=== PATIENT | male | born 1995 | race Caucasian/White ===

== ENCOUNTER 2023-12-10 14:28 | Emergency (ER) | payer BC ==
[~2023-12-10] VITALS: Ht 180.3 cm; Wt 86.2 kg
[2023-12-10 14:42] VITALS: O2SAT 99
[2023-12-10] MEDS ORDERED: IBUP-1957 PO ×2 (14:53→17:40)
[2023-12-10] MEDS ORDERED: QUET50TA PO (14:53)
[2023-12-10 16:07] LABS: *BILIRUBIN,URIN NEGATIVE (NEGATIVE); *BLOOD, URINE TRACE (NEGATIVE); *CLARITY,URINE CLEAR (CLEAR); *COLOR,URINE YELLOW (YELLOW); *KETONES,URINE NEGATIVE (NEGATIVE); *PROTEIN,URINE NEGATIVE (NEGATIVE); *UROBILINOGEN,URINE 0.2 E.U./dl (NORMAL); LEUKOCYTE ESTERASE ,URINE NEGATIVE (NEGATIVE); NITRITE, URINE NEGATIVE (NEGATIVE); PH,URINE 7.5 (5.0-8.0); UGLUCOSE NEGATIVE (NEGATIVE)
[2023-12-10 16:51] LABS: SQUAMOUS EPITHELIAL CELL,UR FEW /HPF (NONE SEEN); WBC,URINE 0-3 /HPF (0-3)
== END 2023-12-10 17:58 | disposition home or self-care (01) ==
LOC: ER 14:28
DX: S39.011A Strain of muscle, fascia and tendon of abdomen, initial encounter (principal); Z79.899 Other long term (current) drug therapy; Z60.2 Problems related to living alone; X58.XXXA Exposure to other specified factors, initial encounter; Y93.89 Activity, other specified; Y92.89 Other specified places as the place of occurrence of the external cause; Y99.8 Other external cause status
CPT/HCPCS: A4606; A4663

== ENCOUNTER 2023-12-12 11:22 | Inpatient (IN) | payer BC ==
[~2023-12-12] VITALS: Ht 180.3 cm; Wt 88.0 kg
[~2023-12-12 11:22] MED LIST: IBUP-1957 PO; QUET50TA PO
[2023-12-12 11:37] VITALS: O2SAT 99
[2023-12-12 13:06] LABS: ALANINE AMINOTRANSFERASE 29 U/L (16-63); ALKALINE PHOSPHATASE 118 U/L (50-136); ASPARTATE AMINOTRANSFERASE 15 U/L (15-37); BILIRUBIN,TOTAL 0.3 mg/dL (0.2-1.0); CALCIUM 9.1 mg/dL (8.5-10.1); CARBON DIOXIDE 27 mmol/L (21-32); CHLORIDE 92 mmol/L (98-107); CREATININE 0.9 mg/dL (0.6-1.3); GLUCOSE 93 mg/dL (74-106); POTASSIUM 4.6 mmol/L (3.5-5.1); SODIUM SERUM 125 mmol/L (136-145); TOTAL PROTEIN, SERUM 7.4 g/dL (6.4-8.2); UREA NITROGEN, BLOOD 9 mg/dL (7-18)
[2023-12-12 13:18] LABS: BILIRUBIN,DIRECT < 0.1 mg/dL (0.0-0.2)
[2023-12-12 13:32] LABS: BASOPHILS % (AUTO) 0.3 % (0.0-2.0); DIFFERENTIAL COMMENT 0; EOSINOPHILS # (AUTO) 0.2 K/uL (0.0-0.7); EOSINOPHILS % (AUTO) 2.4 % (0.0-7.0); HEMATOCRIT 36.5 % (36.7-47.1); HEMOGLOBIN 13.3 g/dL (12.5-16.3); LYMPHOCYTES # (AUTO) 1.4 K/uL (0.8-4.8); LYMPHOCYTES % (AUTO) 21.2 % (20.5-51.5); MEAN CORPUSCULAR HEMOGLOBIN 31.6 uug (23.8-33.4); MEAN CORPUSCULAR HGB CONC 36 g/dL (32.5-36.3); MEAN CORPUSCULAR VOLUME 87.1 fL (73.0-96.2); MONOCYTES # (AUTO) 0.5 K/uL (0.1-1.30); MONOCYTES % (AUTO) 7.6 % (0.0-11.0); NEUTROPHILS # (AUTO) 4.6 K/uL (1.8-8.9); NEUTROPHILS % (AUTO) 68.5 % (38.5-71.5); PLATELET COUNT (AUTO) 300 K/uL (152-348); RED BLOOD CELL COUNT(AUTO) 4.19 MIL/uL (4.06-5.63); RED CELL DISTRIBUTION WIDTH 12.8 % (12.1-16.2); WHITE BLOOD COUNT (AUTO) 6.7 K/uL (3.6-10.2)
[2023-12-12 13:49] LABS: *BILIRUBIN,URIN NEGATIVE (NEGATIVE); *BLOOD, URINE 1+ (NEGATIVE); *CLARITY,URINE CLEAR (CLEAR); *COLOR,URINE LIGHT YELLOW (YELLOW); *KETONES,URINE NEGATIVE (NEGATIVE); *PROTEIN,URINE NEGATIVE (NEGATIVE); *UROBILINOGEN,URINE 0.2 E.U./dl (NORMAL); LEUKOCYTE ESTERASE ,URINE NEGATIVE (NEGATIVE); NITRITE, URINE NEGATIVE (NEGATIVE); UGLUCOSE NEGATIVE (NEGATIVE)
[2023-12-12 13:52] LABS: BACTERIA,URINE RARE /HPF (NONE SEEN); SQUAMOUS EPITHELIAL CELL,UR FEW /HPF (NONE SEEN); WBC,URINE 0-3 /HPF (0-3)
[2023-12-12 13:57] LABS: *SODIUM RNDM,URINE 125 mmol/L (40-220)
[2023-12-12] MEDS ORDERED: ONDANSETRON 4 MG/2 ML VIAL IV PRN (16:00)
[2023-12-12] MEDS ORDERED: HYDROCODONE/APAP 10-325 MG TABLET PO PRN (16:00)
[2023-12-12] MEDS ORDERED: ACETAMINOPHEN 325 MG TABLET PO PRN (16:00)
[2023-12-12] MEDS ORDERED: HYDROCODONE/APAP 5-325MG TABLET PO PRN (16:00)
[2023-12-12] MEDS ORDERED: IV NS 1000 ML 1,000 ML IV PRN (16:00)
[2023-12-12] MEDS ORDERED: MAGNESIUM HYDROXIDE 30 ML LIQUID UDC PO PRN (16:00)
[2023-12-12] MEDS ORDERED: REMEDY ESSENTIAL ZINC PASTE 113 GM TP PRN (16:00)
[2023-12-12 17:03] VITALS: TEMP 98
[2023-12-13] MEDS ORDERED: PANTOPRAZOLE SODIUM 40 MG TABLET.DR PO SCH (07:00)
[2023-12-13] MEDS ORDERED: QUET200T31 PO (17:56)
== END 2023-12-12 18:04 | disposition left against medical advice (07) | DRG 641 ==
LOC: ER 11:25 → MEDSURG3 16:10
PROVIDERS: ADMIT Nurse Practitioner Acute Care; ATTEND Nurse Practitioner Acute Care
DX: E87.1 Hypo-osmolality and hyponatremia (principal); F31.81 Bipolar II disorder; T42.1X5A Adverse effect of iminostilbenes, initial encounter; Y92.009 Unspecified place in unspecified non-institutional (private) residence as the place of occurrence of the external cause; F12.90 Cannabis use, unspecified, uncomplicated; R10.31 Right lower quadrant pain; M54.50 Low back pain, unspecified
CPT/HCPCS: 36415; 84300; 85025; 93005; A4606; A4663; G0378

== ENCOUNTER 2023-12-13 08:54 | Inpatient (IN) | payer BC ==
[~2023-12-13] VITALS: Ht 180.3 cm; Wt 86.2 kg
[2023-12-13 11:41] LABS: BASOPHILS % (AUTO) 0.6 % (0.0-2.0); EOSINOPHILS # (AUTO) 0.2 K/uL (0.0-0.7); EOSINOPHILS % (AUTO) 3.8 % (0.0-7.0); HEMATOCRIT 37.6 % (36.7-47.1); HEMOGLOBIN 13.1 g/dL (12.5-16.3); LYMPHOCYTES # (AUTO) 1.5 K/uL (0.8-4.8); LYMPHOCYTES % (AUTO) 30.1 % (20.5-51.5); MEAN CORPUSCULAR HEMOGLOBIN 30.8 uug (23.8-33.4); MEAN CORPUSCULAR HGB CONC 35 g/dL (32.5-36.3); MEAN CORPUSCULAR VOLUME 88.3 fL (73.0-96.2); MONOCYTES # (AUTO) 0.4 K/uL (0.1-1.30); MONOCYTES % (AUTO) 7.8 % (0.0-11.0); NEUTROPHILS # (AUTO) 2.9 K/uL (1.8-8.9); NEUTROPHILS % (AUTO) 57.7 % (38.5-71.5); PLATELET COUNT (AUTO) 260 K/uL (152-348); RED BLOOD CELL COUNT(AUTO) 4.26 MIL/uL (4.06-5.63); RED CELL DISTRIBUTION WIDTH 13.1 % (12.1-16.2)
[2023-12-13 11:56] LABS: CARBON DIOXIDE 26 mmol/L (21-32); CHLORIDE 94 mmol/L (98-107); CREATININE 0.9 mg/dL (0.6-1.3); GLUCOSE 90 mg/dL (74-106); POTASSIUM 4.1 mmol/L (3.5-5.1); SODIUM SERUM 127 mmol/L (136-145); UREA NITROGEN, BLOOD 9 mg/dL (7-18)
[2023-12-13 11:59] LABS: DIFFERENTIAL COMMENT 1
[2023-12-13 12:04] LABS: ALANINE AMINOTRANSFERASE 29 U/L (16-63); ALBUMIN 3.8 g/dL (3.4-5.0); ALKALINE PHOSPHATASE 115 U/L (50-136); ASPARTATE AMINOTRANSFERASE 14 U/L (15-37); BILIRUBIN,DIRECT 0.1 mg/dL (0.0-0.2); BILIRUBIN,TOTAL 0.2 mg/dL (0.2-1.0); TOTAL PROTEIN, SERUM 7.1 g/dL (6.4-8.2)
[2023-12-13] MEDS ORDERED: REMEDY ESSENTIAL ZINC PASTE 113 GM TP PRN (15:30)
[2023-12-13] MEDS ORDERED: HYDROCODONE/APAP 5-325MG TABLET PO PRN (15:30)
[2023-12-13] MEDS ORDERED: ACETAMINOPHEN 325 MG TABLET PO PRN (15:30)
[2023-12-13] MEDS ORDERED: ONDANSETRON 4 MG/2 ML VIAL IV PRN (15:30)
[2023-12-13] MEDS ORDERED: MAGNESIUM HYDROXIDE 30 ML LIQUID UDC PO PRN (15:30)
[2023-12-13] MEDS ORDERED: IBUPROFEN 800 MG TABLET PO PRN ×2 (15:30)
[2023-12-13] MEDS ORDERED: QUET200T31 PO (17:56)
[2023-12-13] MEDS: IV NS 1000 ML 1,000 ML IV PRN (19:00)
[2023-12-13 19:30] VITALS: BP 131/86; TEMP 97.6; O2SAT 100
[2023-12-13] MEDS: QUETIAPINE FUMARATE 200 MG TABLET PO PRN (21:28)
[2023-12-13] MEDS: ZOLPIDEM 5 MG TABLET PO PRN (23:11)
[2023-12-13 23:54] VITALS: BP 115/62; TEMP 97.9; O2SAT 97
[2023-12-14] MEDS: diphenhydrAMINE 50 MG CAPSULE PO PRN (00:44)
[2023-12-14 04:09] VITALS: BP 93/55; TEMP 97.7; O2SAT 99
[2023-12-14] MEDS ORDERED: diphenhydrAMINE 50 MG CAPSULE PO PRN (05:45)
[2023-12-14 07:35] LABS: BASOPHILS % (AUTO) 0.5 % (0.0-2.0); EOSINOPHILS # (AUTO) 0.2 K/uL (0.0-0.7); EOSINOPHILS % (AUTO) 4.9 % (0.0-7.0); HEMATOCRIT 37.4 % (36.7-47.1); HEMOGLOBIN 13.3 g/dL (12.5-16.3); LYMPHOCYTES # (AUTO) 1.3 K/uL (0.8-4.8); LYMPHOCYTES % (AUTO) 30.4 % (20.5-51.5); MEAN CORPUSCULAR HEMOGLOBIN 31.3 uug (23.8-33.4); MEAN CORPUSCULAR HGB CONC 36 g/dL (32.5-36.3); MEAN CORPUSCULAR VOLUME 88.1 fL (73.0-96.2); MONOCYTES # (AUTO) 0.4 K/uL (0.1-1.30); NEUTROPHILS # (AUTO) 2.4 K/uL (1.8-8.9); NEUTROPHILS % (AUTO) 54.2 % (38.5-71.5); PLATELET COUNT (AUTO) 286 K/uL (152-348); RED BLOOD CELL COUNT(AUTO) 4.25 MIL/uL (4.06-5.63); RED CELL DISTRIBUTION WIDTH 13.1 % (12.1-16.2); WHITE BLOOD COUNT (AUTO) 4.3 K/uL (3.6-10.2)
[2023-12-14 07:47] LABS: DIFFERENTIAL COMMENT 1
[2023-12-14 07:51] VITALS: BP 112/67; TEMP 97.8; O2SAT 99
[2023-12-14 07:54] LABS: CALCIUM 8.8 mg/dL (8.5-10.1); PHOSPHOROUS 4.5 mg/dL (2.5-4.9); POTASSIUM 4.4 mmol/L (3.5-5.1)
[2023-12-14 09:23] LABS: URIC ACID 4.1 mg/dL (3.5-7.2)
[2023-12-14 09:46] LABS: THYROID STIMULATING HORMONE 1.977 mIU/mL (0.358-3.740)
[2023-12-14 09:50] LABS: MAGNESIUM 2.1 mg/dL (1.8-2.4); PHOSPHOROUS 4.6 mg/dL (2.5-4.9)
[2023-12-14 10:45] LABS: *SODIUM RNDM,URINE 57 mmol/L (40-220)
[2023-12-14 12:05] VITALS: BP 112/64; TEMP 97.8; O2SAT 99
[2023-12-14 16:28] VITALS: BP 130/77; TEMP 97.3; O2SAT 100
== END 2023-12-14 18:25 | disposition home or self-care (01) | DRG 641 ==
LOC: ER 08:54 → TELE3 16:29
PROVIDERS: ADMIT Student in an Organized Health Care Education/Training Program; ATTEND Student in an Organized Health Care Education/Training Program
DX: E87.1 Hypo-osmolality and hyponatremia (principal); F31.9 Bipolar disorder, unspecified; S39.012D Strain of muscle, fascia and tendon of lower back, subsequent encounter; X58.XXXD Exposure to other specified factors, subsequent encounter; G47.00 Insomnia, unspecified; G89.29 Other chronic pain; M25.50 Pain in unspecified joint; R35.89 Other polyuria; R63.1 Polydipsia; F12.90 Cannabis use, unspecified, uncomplicated
CPT/HCPCS: 36415; 71045; 76770; 82533; 83735; 84100; 84300; 84443; 84484; 84550; 85025; 85730; 93005; A4663; G0378; J7040; Q0163